=== PATIENT | female | born 1950 | race Caucasian/White ===

== ENCOUNTER 2020-12-24 06:28 | Day surgery (SDC) | payer MEDICARE ==
[~2020-12-24 06:28] MED LIST: CRESTOR10 MG PO; FOSAMAX PLUS PO; METFORMIN500 M2 PO; NORVASC5 M1 PO; SERTRALINE50 MG PO
[2020-12-24] MEDS ORDERED: ASPIRIN81 MG PO (06:54)
[2020-12-24 08:58] VITALS: BP 138/76
== END 2020-12-24 09:25 | disposition home or self-care (01) ==
LOC: ENDO 06:28
PROVIDERS: ATTEND Surgery
PROC: 0DJD8ZZ Inspection of Lower Intestinal Tract, Via Natural or Artificial Opening Endoscopic (ICD-10-PCS; principal; 2020-12-24)
DX: Z12.11 Encounter for screening for malignant neoplasm of colon (principal); K57.30 Diverticulosis of large intestine without perforation or abscess without bleeding; Q43.9 Congenital malformation of intestine, unspecified; K64.8 Other hemorrhoids; I10 Essential (primary) hypertension; E11.9 Type 2 diabetes mellitus without complications; Z79.84 Long term (current) use of oral hypoglycemic drugs
CPT/HCPCS: G0121

== ENCOUNTER 2021-04-15 04:07 | Emergency (ER) | payer MEDICARE ==
[~2021-04-15] VITALS: Ht 162.6 cm; Wt 75.0 kg
[~2021-04-15 04:07] MED LIST changes: +ASPIRIN81 MG PO
[2021-04-15 05:06] LABS: HEMATOCRIT 43.1 % (37.0-47.0); HEMOGLOBIN 14.1 g/dl (12.0-16.0); IMMATURE GRANULOCYTES 0.4 % (0.0-5.0); MEAN CELL VOLUME 92.1 fL CALC (80.0-100.0); MEAN CORPUSCULAR HGB 30.1 pG CALC (26.0-32.0); MEAN CORPUSCULAR HGB CONC 32.7 g/dL CAL (32.0-36.0); NEUT# 6.65 thou/uL (2.00-7.15); RED BLOOD COUNT 4.68 mill/uL (4.20-5.60); RED CELL DISTRI WIDTH 12.3 % (11.5-15.5); URINE BILIRUBIN - DIPSTICK NEGATIVE (NEGATIVE); URINE BLOOD DIPSTICK TRACE-LYSED (NEGATIVE); URINE COLOR YELLOW; URINE GLUCOSE - DIPSTICK NEGATIVE (NEGATIVE); URINE KETONE NEGATIVE (NEGATIVE); URINE LEUK ESTERASE NEGATIVE (NEGATIVE); URINE PROTEIN - DIPSTICK NEGATIVE (NEG-TRACE); URINE UROBILINOGEN - DIPSTICK 0.2 E.U./dL (0.2)
[2021-04-15 05:07] LABS: URINE NITRITE - DIPSTICK NEGATIVE (Negative)
[2021-04-15 05:21] LABS: ALBUMIN 4.4 g/dL (3.2-5.0); ALKALINE PHOSPHATASE 60 u/l (38-126); AMYLASE 79 u/l (30-110); ANION GAP 12 (6-22 (CALC)); BILIRUBIN, TOTAL 0.6 mg/dL (0.0-1.4); BUN 10 mg/dL (8-23); BUN/CREATININE RATIO 16 (12-20 (CALC)); CARBON DIOXIDE 29 mmol/l (22-30); CHLORIDE 102 mmol/l (95-108); CREATININE 0.7 mg/dL (0.5-1.0); GFR > 60 ML/MIN (>=60 (CALC)); GFR FOR AFR.AMER. > 60 ML/MIN (>=60 (CALC)); LIPASE 231 u/l (23-300); SGOT/AST 32 u/l (9-36); SODIUM 140 mmol/l (137-146); TOTAL PROTEIN 7.6 g/dL (6.3-8.2)
[2021-04-15] MEDS ORDERED: TRAMADOL HCL50 MG PO (06:36)
[2021-04-15 06:47] VITALS: BP 181/87
== END 2021-04-15 06:55 | disposition home or self-care (01) ==
LOC: ED 04:07
PROVIDERS: Family Medicine
DX: K80.20 Calculus of gallbladder without cholecystitis without obstruction (principal); I10 Essential (primary) hypertension; E11.9 Type 2 diabetes mellitus without complications; K58.9 Irritable bowel syndrome, unspecified; Z79.4 Long term (current) use of insulin
CPT/HCPCS: Q9967

== ENCOUNTER 2021-05-15 08:47 | Day surgery (SDC) | payer MEDICARE ==
[~2021-05-15] VITALS: Ht 162.6 cm; Wt 72.6 kg
[~2021-05-15 08:47] MED LIST changes: +CALCIUM500 M5 PO; +EQL ASPIRIN LOW81 M1 PO; +FISH OIL1000 MG PO; +GLUCOS/CHOND1 TA1 PO; +MELATONIN5 MG PO; +MULTI VIT PO; +TRAMADOL HCL50 MG PO; +TURMERIC500 MG PO; +VITAMIN C500 M6 PO; +VITAMIN D31000 UNI1 PO; +ZINC50 M1 PO
[2021-05-15] MEDS ORDERED: PERCOCET 5/321 COMBO PO (10:36)
[2021-05-15 11:02] VITALS: BP 131/69
== END 2021-05-15 11:19 | disposition home or self-care (01) ==
LOC: ORM 08:47
PROVIDERS: ATTEND Surgery
PROC: 0FT44ZZ Resection of Gallbladder, Percutaneous Endoscopic Approach (ICD-10-PCS; principal; 2021-05-15)
DX: K80.10 Calculus of gallbladder with chronic cholecystitis without obstruction (principal); I10 Essential (primary) hypertension; E11.9 Type 2 diabetes mellitus without complications; Z79.84 Long term (current) use of oral hypoglycemic drugs
CPT/HCPCS: J0131; J1610; Q9967

== ENCOUNTER 2023-11-06 09:42 | Emergency (ER) | payer MEDICARE ==
[~2023-11-06] VITALS: Ht 162.6 cm; Wt 70.0 kg
[2023-11-06] VITALS (10 sets, daily range): BP systolic 107–134; BP diastolic 53–72
[~2023-11-06 09:42] MED LIST changes: +PERCOCET 5/321 COMBO PO
[2023-11-06] MEDS ORDERED: SODIUM CHLORIDE 0.9% 1,000 ML IV ONE ×4 (10:05→11:05)
[2023-11-06 10:16] LABS: BASO% 0.3 % (0-3); EOS% 0.2 % (0-8); HEMATOCRIT 40.6 % (37.0-47.0); HEMOGLOBIN 13.5 g/dl (12.0-16.0); IMMATURE GRANULOCYTES 0.1 % (0.0-5.0); LYMPH% 9.4 % (15-41); MEAN CELL VOLUME 92.7 fL CALC (80.0-100.0); MEAN CORPUSCULAR HGB 30.8 pG CALC (26.0-32.0); MEAN CORPUSCULAR HGB CONC 33.3 g/dL CAL (32.0-36.0); MONO% 8.8 % (2-13); NEUT# 12.69 thou/uL (2.00-7.15); NEUT% 81.2 % (42-76); RED BLOOD COUNT 4.38 mill/uL (4.20-5.60); RED CELL DISTRI WIDTH 12.3 % (11.5-15.5)
[2023-11-06 10:24] LABS: ALBUMIN 4.9 g/dL (3.2-5.0); CREATININE 0.8 mg/dL (0.5-1.0); POTASSIUM 3.6 mmol/l (3.5-5.1); TOTAL PROTEIN 8.3 g/dL (6.3-8.2)
[2023-11-06 10:25] LABS: BILIRUBIN, TOTAL 1.8 mg/dL (0.02-1.3)
[2023-11-06] MEDS ORDERED: PIPERACILLIN Sodium-Tazobactam 3.375 GM in SODIUM CHLORIDE 0.9% 100 ML IV ONE (11:05)
[2023-11-06 12:03] LABS: URINE BILIRUBIN - DIPSTICK Negative (NEGATIVE); URINE BLOOD DIPSTICK Trace-intact (NEGATIVE); URINE COLOR Yellow; URINE GLUCOSE - DIPSTICK Negative (NEGATIVE); URINE KETONE 15 mg/dL (NEGATIVE); URINE LEUK ESTERASE Negative (NEGATIVE); URINE NITRITE - DIPSTICK Negative (Negative); URINE PH 6.5 (4.5-8.0); URINE PROTEIN - DIPSTICK Negative (NEG-TRACE); URINE UROBILINOGEN - DIPSTICK 0.2 E.U./dL (0.2)
[2023-11-06] MEDS ORDERED: METRONIDAZOLE500 MG PO (13:46)
[2023-11-06] MEDS ORDERED: LEVOFLOXACIN500MG PO (13:46)
== END 2023-11-06 14:17 | disposition home or self-care (01) ==
LOC: ED 09:42
PROVIDERS: Emergency Medicine
DX: K57.32 Diverticulitis of large intestine without perforation or abscess without bleeding (principal); I10 Essential (primary) hypertension; E11.9 Type 2 diabetes mellitus without complications; Z90.710 Acquired absence of both cervix and uterus; Z79.84 Long term (current) use of oral hypoglycemic drugs
CPT/HCPCS: Q9967